=== PATIENT | male | born 2000 | race Two or more races ===

== ENCOUNTER 2023-06-01 11:54 | Emergency (ER) | payer OTHER ==
[~2023-06-01] VITALS: Ht 175.3 cm; Wt 78.0 kg
== END 2023-06-01 18:26 | disposition home or self-care (01) ==
LOC: ER 11:55
DX: S00.93XA Contusion of unspecified part of head, initial encounter (principal); W18.30XA Fall on same level, unspecified, initial encounter; Y93.9 Activity, unspecified; Y92.9 Unspecified place or not applicable; Y99.9 Unspecified external cause status